=== PATIENT | female | born 1970 | race Asian ===

== ENCOUNTER → 2018-06-28 | Day surgery (SDC) | payer OTHER ==
[2018-06-27 10:22] LABS: BASOPHILS % 0.6 % (0.0-1.0); EOSINOPHILS # (AUTO) 0.1 (0.0-0.4); EOSINOPHILS % 1.7 % (0.0-6.0); HEMATOCRIT 35.2 % (34.2-44.1); HEMOGLOBIN 10.8 g/dL (12.0-16.0); LYMPHOCYTES # (AUTO) 2.2 (1.0-3.2); LYMPHOCYTES % 31.3 % (18.0-39.1); MEAN CORPUSCULAR HEMOGLOBIN 25.1 pg (28-32); MEAN CORPUSCULAR HGB CONC 30.7 g/dL (31-35); MEAN CORPUSCULAR VOLUME 81.7 fL (81-99); MONOCYTES # (AUTO) 0.8 (0.2-0.8); MONOCYTES % 11.1 % (4.4-11.3); NEUTROPHILS # (AUTO) 3.9 (2.1-6.9); PLATELET COUNT 255 x10e3/uL (140-360); RED BLOOD COUNT 4.31 x10e6/uL (3.6-5.1); RED CELL DISTRIBUTION WIDTH 13.8 % (11.7-14.4)
[~2018-06-28] MED LIST: AMLODIPINE BESYL5 MG PO; DEXAMETHASONE SOD PHOS INJ 4 MG/ML VIAL ONE; FENTANYL CITRATE/PF 100MCG/2 ML INJ ONE; LIDOCAINE HCL 2% LOCAL INJ 5 ML SDV VIAL INJ ONE; MIDAZOLAM HCL 2 MG/2 ML VIAL ONE; OMEPRAZOLE40 MG PO; ONDANSETRON HCL INJ 2 MG/ML VIAL ONE; PREVACID15 MG PO; PROPOFOL IV EMULSION 10 MG/ML 20 ML VIAL ONE; SEVOFLURANE INHAL SOLN 250 ML PEN BTL ONE; SILVER NITRATE SWABS ONE
[2018-06-28 14:35] VITALS: BP 123/76
--- NOTE | 2018-07-11 15:36 | Operative Report ---
DATE OF PROCEDURE: June 28, 2018 PREOPERATIVE DIAGNOSES 1. Abnormal uterine bleeding. 2. Fibroid uterus. 3. Suspected submucosal myoma. POSTOPERATIVE DIAGNOSES 1. Abnormal uterine bleeding. 2. Fibroid uterus. PROCEDURES PERFORMED 1. Dilatation and curettage. 2. Hysteroscopy. GYM INSTRUCTOR: None. ANESTHESIA: General. ESTIMATED BLOOD LOSS: Minimal. COMPLICATIONS: None. FINDINGS: The patient had an 8 to 10 week size enlarged fibroid uterus. Hysteroscopic findings included a normal endometrial cavity with patent ostia bilaterally. SPECIMENS: Endometrial curettings. INDICATIONS: The patient is a 48-year-old female with abnormal uterine bleeding, fibroid uterus and suspected 0.06 cm submucosal fibroid noted on ultrasound. PROCEDURE NOTE: Prior to the procedure, the risks, benefits, indications and alternatives were discussed. The patient agreed to proceed. Following anesthesia, the patient was placed in the modified dorsal lithotomy position in [facility] stirps. Prepping and draping were performed in the typical sterile fashion. A time out was done. A weighted speculum was placed in the vagina, and the cervix was grasped with a single-toothed tenaculum. The cervix was sequentially dilated, and the hysteroscope was inserted with the findings as previously mentioned. The TruClear device was then inserted into the hysteroscope and used to perform an endometrial curettage under direct visualization. A sharp curettage was then performed until a gritty texture was noted. The endometrial tissue was sent to pathology. All instruments were then removed from the patient. The tenaculum sites were noted to be hemostatic. All sponge, lap, needle and instrument counts were correct x2. The patient was awakened from anesthesia and brought to the recovery room in stable condition. Job#: [id number]
== END | disposition home or self-care (01) ==
LOC: OR 10:32
PROVIDERS: ATTEND Obstetrics & Gynecology Obstetrics
DX: N93.8 Other specified abnormal uterine and vaginal bleeding (principal); D25.9 Leiomyoma of uterus, unspecified; I10 Essential (primary) hypertension; D64.9 Anemia, unspecified; K21.9 Gastro-esophageal reflux disease without esophagitis
CPT/HCPCS: 36415; 58558; 84702; 85025; 88305; J1100; J2001; J2250; J2405; J2704